=== PATIENT | male | born 1970 | race Two or more races ===

== ENCOUNTER 2017-12-12 14:54 | Emergency (ER) | payer MEDICAID ==
[~2017-12-12] VITALS: Ht 175.3 cm; Wt 93.9 kg
[2017-12-12 15:02] VITALS: Ht 175.3 cm; Wt 93.9 kg
[2017-12-12] MEDS ORDERED: NOR10 PO (15:07)
[2017-12-12] MEDS ORDERED: CARBATROL200 MG PO (15:07)
[2017-12-12 16:36] LABS: BASOPHIL % 0.4 % (0-2); PLATELET COUNT 220 x10^3mcL (130-400); RED CELL DISTRIBUTION WIDTH 12.5 % (11.5-14.5)
[2017-12-12 16:48] LABS: microscopic required? NO
[2017-12-12 16:57] LABS: CALCIUM 8.6 mg/dL (8.5-10.1); CARBON DIOXIDE 27.6 mmol/L (21-32); CHLORIDE SERUM 90 mmol/L (98-107); CREATININE SERUM 0.7 mg/dL (0.7-1.3); GFR1 > 60 mL/min; GLUCOSE SERUM 93 mg/dL (74-106); POTASSIUM SERUM 3.5 mmol/L (3.5-5.1); SODIUM SERUM 126 mmol/L (136-145)
[2017-12-12 17:02] LABS: ALBUMIN 4.2 g/dL (3.4-5.0); ALKALINE PHOSPHATASE 78 U/L (46-116); ALT/SGPT 41 U/L (16-63); AST/SGOT 27 U/L (15-37); BILIRUBIN TOTAL 0.52 mg/dL (0.20-1.00)
[2017-12-12 17:14] LABS: UA SPECIFIC GRAVITY <=1.005 (1.005-1.035); urine erythrocyte NEGATIVE (NEGATIVE)
[2017-12-12 17:24] LABS: AMPHETAMINE QUAL UR NONE DETECTED (See below)
[2017-12-12 18:29] LABS: CALCIUM 8.3 mg/dL (8.5-10.1); CHLORIDE SERUM 92 mmol/L (98-107); CREATININE SERUM 0.7 mg/dL (0.7-1.3); GFR1 > 60 mL/min; GLUCOSE SERUM 97 mg/dL (74-106); POTASSIUM SERUM 3.6 mmol/L (3.5-5.1); SODIUM SERUM 126 mmol/L (136-145)
[2017-12-12 20:08] VITALS: BP 129/76
== END 2017-12-12 20:03 | disposition home or self-care (01) ==
LOC: ED 14:54
PROVIDERS: Emergency Medicine
DX: G40.802 Other epilepsy, not intractable, without status epilepticus (principal); E87.1 Hypo-osmolality and hyponatremia; I10 Essential (primary) hypertension
CPT/HCPCS: J7030